=== PATIENT | female | born 1950 | race Hispanic/Latino ===

== ENCOUNTER 2017-11-17 11:05 | Outpatient (CLI) | payer MEDICARE ==
--- NOTE | 2017-11-17 15:38 | XRay Report ---
XRAY LEFT SHOULDER THREE VIEWS: 11/17/17 11:05:00 CLINICAL: History of breast cancer. Left shoulder pain. FINDINGS: No fracture or dislocation. Moderate acromioclavicular joint arthritis with lateral downsloping of the acromion and mild subacromial impingement. Mild irregularity of the greater tuberosity of the humerus. Mild glenohumeral joint arthritis with mild irregularity of the inferior glenoid. No suspicious bone lesion. The soft tissues are normal. 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 Degenerative changes at the greater tuberosity suggests possible rotator cuff disease. No evidence of metastatic disease.
== END 2017-11-17 11:06 | disposition home or self-care (01) ==
LOC: SPVIMAG 11:05
PROVIDERS: ATTEND Internal Medicine Hematology
DX: M19.012 Primary osteoarthritis, left shoulder (principal); M25.812 Other specified joint disorders, left shoulder; C50.411 Malignant neoplasm of upper-outer quadrant of right female breast